=== PATIENT | female | born 2000 | race Caucasian/White ===

== ENCOUNTER 2024-04-06 09:36 | Outpatient (CLI) | payer OTHER, SELFPAY ==
[2024-04-06 14:38] LABS: Strep A DNA Probe* NOT DETECTED (Not Detectd)
== END 2024-04-06 09:37 | disposition home or self-care (01) ==
LOC: KYNREF 09:36
PROVIDERS: PCP Nurse Practitioner Family; Visit Provider Nurse Practitioner Family
DX: J02.9 Acute pharyngitis, unspecified (principal)
CPT/HCPCS: 87651

== ENCOUNTER 2024-08-14 11:27 | Outpatient (CLI) | payer OTHER, SELFPAY ==
[2024-08-14 13:51] LABS: PCR FLU A Negative PCR FLU A (Negative); PCR FLU B Negative PCR FLU B (Negative); PCR RSV Negative PCR RSV (Negative); SARS PCR* Negative SARS-CoV-2 (Negative)
== END 2024-08-14 11:28 | disposition home or self-care (01) ==
LOC: KYNREF 11:28
PROVIDERS: PCP Nurse Practitioner Family; Visit Provider Nurse Practitioner Family
DX: J11.1 Influenza due to unidentified influenza virus with other respiratory manifestations (principal)
CPT/HCPCS: 87631

== ENCOUNTER 2024-09-25 10:28 | Outpatient (CLI) | payer OTHER, SELFPAY ==
[2024-09-25 15:10] LABS: Chlamydia DNA Amplified* NOT DETECTED (No Detected); GC DNA Amplified* NOT DETECTED (No Detected)
== END 2024-09-25 10:29 | disposition home or self-care (01) ==
PROVIDERS: PCP Nurse Practitioner Family; Visit Provider Nurse Practitioner Family
DX: Z11.3 Encounter for screening for infections with a predominantly sexual mode of transmission (principal)
CPT/HCPCS: 86592; 86703; 86803; 87491; 87529; 87591

== ENCOUNTER 2024-11-29 08:19 | Outpatient (CLI) | payer OTHER, SELFPAY ==
[2024-11-29 14:57] LABS: PCR FLU A POSITIVE PCR FLU A (Negative); PCR FLU B Negative PCR FLU B (Negative); SARS PCR* Negative SARS-CoV-2 (Negative)
== END 2024-11-29 08:20 | disposition home or self-care (01) ==
LOC: KYNREF 08:19
PROVIDERS: PCP Nurse Practitioner Family; Visit Provider Nurse Practitioner Family
DX: G43.919 Migraine, unspecified, intractable, without status migrainosus (principal)
CPT/HCPCS: 87631

== ENCOUNTER 2025-05-21 15:58 | Outpatient (CLI) | payer OTHER, SELFPAY | END 2025-05-21 15:59 | disposition home or self-care (01) | PROVIDERS: PCP Nurse Practitioner Family; Visit Provider Nurse Practitioner Family | DX: R20.2 Paresthesia of skin (principal) | CPT/HCPCS: 82607; 82947; 84443 ==

== ENCOUNTER 2025-10-04 07:38 | Day surgery (SDC) | payer OTHER, SELFPAY ==
[2025-10-04] VITALS (9 sets, daily range): BP systolic 112–146; BP diastolic 56–85; PULSE 69–96; RESP 16; TEMP 36.6–37.2; O2SAT 97–100; BMI 35.5
--- NOTE | 2025-10-04 07:52 | SUR.PREOP ---
SAME DAY SURGERY LOCAL INJECTION SITE VERIFICATION WAS PERFORMED BY SURGEON/PA AND PATIENT PRIOR TO LOCAL ANESTHETIC BEING INJECTED TO OPERATIVE SITE.
[2025-10-04] MEDS: BUPIVACAINE 0.5% 30 ML INJECTION (08:21)
--- NOTE | 2025-10-04 08:24 | W.PM.H&PU ---
History & Physical Update History & Physical Update H&P Reviewed and patient assessed: No changes noted
--- NOTE | 2025-10-04 08:24 | PM.ORPRC ---
Procedure Note Date of procedure: 10/04/25 Procedure: PREOPERATIVE DIAGNOSIS: 1. Right carpal tunnel syndrome POSTOPERATIVE DIAGNOSIS: 1. Right carpal tunnel syndrome PROCEDURE: 1. Right open carpal tunnel release SURGEON: Michael English MD. [employer]: Erin Espinoza P.A.-C. An neurology physician assistant was critical for this case to aid in patient positioning, tissue retraction, limb manipulation/positioning, and closure. ANESTHESIA: Local anesthetic IMPLANTS: None ESTIMATED BLOOD LOSS: 0 mL TOURNIQUET: 11 min at 225 mmHg COMPLICATIONS: None INDICATIONS: The patient is a pleasant 25-year-old female with history of right hand numbness and pain. Symptoms were not improving with conservative treatment, and patient elected to proceed with surgical intervention consisting of right carpal tunnel release. Prior to surgery, the risks and benefits of the procedure were discussed with patient, all questions were answered, and informed consent was obtained. DESCRIPTION OF PROCEDURE: Patient was seen preoperatively and operative site was marked. The subcutaneous tissues overlying the right carpal tunnel were injected with a combination of 0.5% bupivacaine and 1% lidocaine with epinephrine. Patient was then brought to the operating room and placed in the supine position on the OR table. A tourniquet was placed on the patient's right arm, and right upper extremity was prepped and draped in usual sterile fashion. A surgical time-out was performed confirming patient name, procedure, and location. The operative extremity was then elevated and exsanguinated with an Esmarch, and the tourniquet was inflated to 225 mmHg. A skin incision measuring approximately 3-4 cm was made in line with the ring finger extending from the distal wrist flexion crease to Mejia's cardinal line. Blunt dissection was used to dissect through subcutaneous tissues and palmar fascia. Transverse carpal ligament was identified and was sharply incised proximally with care taken to protect the underlying median nerve. The transverse carpal ligament was then sharply divided along its ulnar border using tenotomy scissors and a burns paiute blade with care taken to protect the underlying median nerve. Once the transverse carpal ligament was divided, the antebrachial fascia was released proximally. The wound was then irrigated with normal saline, and the tourniquet was released. Total tourniquet time was 11 minutes. Hemostasis was achieved with bipolar electrocautery. The skin incision was closed with 3-0 nylon horizontal mattress sutures, and a sterile dressing was applied. Patient was then transferred to the recovery room in stable condition. POSTOPERATIVE PLAN: 1. Patient will be discharged to home day of surgery. 2. Ice and elevation as needed for pain and swelling. 3. Tylenol and/or ibuprofen as needed for pain. 4. They were given instructions for wound care and finger range of motion exercises. 5. Return to the clinic for follow-up evaluation in 10-14 days for wound check and suture removal.
[2025-10-04] MEDS: BACITRACIN OINTMENT BULK TUBE 1 APPLIC TOPICAL (09:00)
== END 2025-10-04 09:28 | disposition home or self-care (01) ==
LOC: OR 07:41
PROVIDERS: PCP Nurse Practitioner Family; Visit Provider Orthopaedic Surgery
PROC: (CPT 64721; principal; 2025-10-04 08:45)
DX: G56.01 Carpal tunnel syndrome, right upper limb (principal)
CPT/HCPCS: 64721; A9270; J0665